=== PATIENT | female | born 1960 | race African-American/Black ===

== ENCOUNTER 2017-06-08 12:16 | Inpatient (IN) ==
[2017-06-08 14:33] LABS: Basophils % 0.2 % (0.0-0.8); Eosinophils # 0.1 10*3/uL (0.0-0.87); Eosinophils % 1.1 % (0.00-10.9); Hemoglobin 11.8 GM/DL (12.0-16.0); Immature Granulocytes % 0.3 %; Immature Granulocytes Absolute 0.03 #; Lymphocytes # 1.7 10*3/uL (1.4-4.0); Lymphocytes % 19.4 % (21.3-54.2); Mean Corpuscular HGB Conc 32.8 GM/DL (32-36); Mean Corpuscular Hemoglobin 30 PG (27-34); Mean Corpuscular Volume 92.3 FL (87-102); Monocytes # 1.1 10*3/uL (0.11-0.8); Monocytes % 12.5 % (1.7-12.7); Neutrophils # 5.8 10*3/uL (1.4-7.4); Neutrophils % 66.5 % (38.7-73.9); Platelet Count 152 T/CUMM (130-400); Red Cell Distribution Width 16.6 % (9.3-17.3); White Blood Count 8.7 T/CUMM (4-12)
[2017-06-08 15:10] LABS: Calcium 8.5 MG/DL (8.5-10.1); Osmolality,Calculated 300.1 MOS/KG (273-304); Potassium 4.5 MMOL/L (3.5-5.1)
[2017-06-08] MEDS ORDERED: VANCOMYCIN INJ 1,000 MG in SODIUM CHLORIDE 0.9% 250 ML IV STA (16:06)
[2017-06-08] MEDS ORDERED: VANCOMYCIN 1,000 MG VIAL ONE (17:11)
[2017-06-08] MEDS ORDERED: GLUCAGON 1 MG VIAL IM PRN (19:20)
[2017-06-08] MEDS ORDERED: DEXTROSE 50% 25 GM/50 ML VIAL IV PRN (19:20)
[2017-06-08] MEDS ORDERED: ACETAMINOPHEN 325 MG TABLET PO PRN (19:20)
[2017-06-08] MEDS ORDERED: ONDANSETRON 4 MG/2 ML VIAL IV PRN (19:20)
[2017-06-08] MEDS: INSULIN REGULAR 100 UNIT/ML SUBCUT SCH (20:52)
[2017-06-09] MEDS: ALBUTEROL/IPRATROPIUM 3 ML NEB RESP TX SCH ×6 (00:29→19:27)
[2017-06-09] MEDS ORDERED: BUPIVACAINE 0.25% 50 ML VIAL ONE (06:26)
[2017-06-09] MEDS: INSULIN REGULAR 100 UNIT/ML SUBCUT SCH ×5 (07:27→21:10)
[2017-06-09] MEDS: PANTOPRAZOLE 40 MG TABLET PO SCH ×3 (07:29→13:06)
[2017-06-09 08:03] LABS: Basophils % 0.5 % (0.0-0.8); Eosinophils # 0.1 10*3/uL (0.0-0.87); Hemoglobin 10.4 GM/DL (12.0-16.0); Immature Granulocytes % 0.4 %; Immature Granulocytes Absolute 0.03 #; Lymphocytes # 1.7 10*3/uL (1.4-4.0); Lymphocytes % 20.6 % (21.3-54.2); Mean Corpuscular HGB Conc 31.5 GM/DL (32-36); Mean Corpuscular Hemoglobin 30 PG (27-34); Mean Corpuscular Volume 93.8 FL (87-102); Mean Platelet Volume 11.3 FL (9.6-12.0); Monocytes # 1.3 10*3/uL (0.11-0.8); Monocytes % 15.3 % (1.7-12.7); Neutrophils # 5.1 10*3/uL (1.4-7.4); Neutrophils % 62.2 % (38.7-73.9); Platelet Count 166 T/CUMM (130-400); Red Blood Count 3.52 MC/CUMM (3.8-5.5); Red Cell Distribution Width 16.5 % (9.3-17.3); White Blood Count 8.2 T/CUMM (4-12)
[2017-06-09] MEDS ORDERED: fentaNYL 100 MCG/2 ML VIAL ONE (10:01)
[2017-06-09] MEDS ORDERED: PROPOFOL 200 MG/20 ML VIAL IV ONE (10:01)
[2017-06-09] MEDS ORDERED: SODIUM CHLORIDE 0.9% 250 ML IV ONE (10:01)
[2017-06-09] MEDS ORDERED: KETAMINE 500 MG/10 ML VIAL ONE (10:01)
[2017-06-09] MEDS ORDERED: LORATADINE 10 MG TABLET PO PRN (11:12)
[2017-06-09] MEDS ORDERED: VANCOMYCIN INJ 750 MG in SODIUM CHLORIDE 0.9% 250 ML IV PRN (11:21)
[2017-06-09] MEDS: PIPERACILLIN/TAZOBACTAM 3,375 MG in SODIUM CHLORIDE 0.9% 100 ML IV SCH (12:55)
[2017-06-09] MEDS: CALCIUM ACETATE 667 MG CAPSULE PO SCH ×2 (12:59→17:50)
[2017-06-09] MEDS: PHENYTOIN ER 100 MG CAPSULE PO SCH ×3 (13:00→21:09)
[2017-06-09] MEDS: LEVOTHYROXINE 50 MCG TABLET PO SCH (13:00)
[2017-06-09] MEDS ORDERED: VANCOMYCIN INJ 1,000 MG in SODIUM CHLORIDE 0.9% 250 ML IV ONE (16:00)
[2017-06-10] MEDS: ALBUTEROL/IPRATROPIUM 3 ML NEB RESP TX SCH ×5 (00:48→14:30)
[2017-06-10] MEDS: PIPERACILLIN/TAZOBACTAM 3,375 MG in SODIUM CHLORIDE 0.9% 100 ML IV SCH ×2 (02:00→15:15)
[2017-06-10 06:13] LABS: Basophils % 0.4 % (0.0-0.8); Eosinophils # 0.1 10*3/uL (0.0-0.87); Eosinophils % 1.2 % (0.00-10.9); Hematocrit 33.1 VOL% (35.7-47.0); Hemoglobin 10.7 GM/DL (12.0-16.0); Immature Granulocytes % 0.4 %; Immature Granulocytes Absolute 0.03 #; Lymphocytes % 27.3 % (21.3-54.2); Mean Corpuscular HGB Conc 32.3 GM/DL (32-36); Mean Corpuscular Hemoglobin 30 PG (27-34); Mean Corpuscular Volume 92.5 FL (87-102); Mean Platelet Volume 12.1 FL (9.6-12.0); Monocytes # 1.1 10*3/uL (0.11-0.8); Monocytes % 14.9 % (1.7-12.7); Neutrophils # 4.1 10*3/uL (1.4-7.4); Neutrophils % 55.8 % (38.7-73.9); Platelet Count 150 T/CUMM (130-400); Red Blood Count 3.58 MC/CUMM (3.8-5.5); Red Cell Distribution Width 16.3 % (9.3-17.3); White Blood Count 7.3 T/CUMM (4-12)
[2017-06-10] MEDS: LEVOTHYROXINE 50 MCG TABLET PO SCH (06:16)
[2017-06-10 06:47] LABS: Calcium 8.6 MG/DL (8.5-10.1); Magnesium 2.5 MG/DL (1.8-2.4)
[2017-06-10] MEDS: CALCIUM ACETATE 667 MG CAPSULE PO SCH ×3 (09:29→17:42)
[2017-06-10] MEDS: PANTOPRAZOLE 40 MG TABLET PO SCH (09:30)
[2017-06-10] MEDS: PHENYTOIN ER 100 MG CAPSULE PO SCH ×2 (09:30→15:16)
[2017-06-10] MEDS: INSULIN REGULAR 100 UNIT/ML SUBCUT SCH ×3 (09:31→17:41)
[2017-06-10 11:21] VITALS: BP 165/74
== END 2017-06-10 17:30 | disposition home health service (06) | DRG 600 ==
LOC: N.ED 12:16 → N.EDINP 16:10 → N.3E 18:26
PROVIDERS: ADMIT Surgery; ATTEND Surgery

== ENCOUNTER 2017-07-31 13:52 | Inpatient (IN) ==
[2017-07-31 15:35] LABS: Basophils % 0.2 % (0.0-0.8); Eosinophils # 0.1 10*3/uL (0.0-0.87); Eosinophils % 1.6 % (0.00-10.9); Hematocrit 35.2 VOL% (35.7-47.0); Hemoglobin 11.1 GM/DL (12.0-16.0); Immature Granulocytes % 0.2 %; Immature Granulocytes Absolute 0.01 #; Lymphocytes # 1.9 10*3/uL (1.4-4.0); Lymphocytes % 32.5 % (21.3-54.2); Mean Corpuscular HGB Conc 31.5 GM/DL (32-36); Mean Corpuscular Hemoglobin 30 PG (27-34); Mean Corpuscular Volume 95.9 FL (87-102); Mean Platelet Volume 10.3 FL (9.6-12.0); Monocytes # 0.5 10*3/uL (0.11-0.8); Monocytes % 9.1 % (1.7-12.7); Neutrophils # 3.2 10*3/uL (1.4-7.4); Neutrophils % 56.4 % (38.7-73.9); Platelet Count 136 T/CUMM (130-400); Red Blood Count 3.67 MC/CUMM (3.8-5.5); Red Cell Distribution Width 17.2 % (9.3-17.3); White Blood Count 5.7 T/CUMM (4-12)
[2017-07-31] MEDS ORDERED: ceFAZolin 1,000 MG in SYRINGE 1 EACH IV ONE (15:37)
[2017-07-31 15:43] LABS: Partial Thromboplastin Time 25.8 SECS (0-40)
[2017-07-31 15:50] LABS: Calcium 8.6 MG/DL (8.5-10.1); Osmolality,Calculated 306.5 MOS/KG (273-304); Potassium 4.6 MMOL/L (3.5-5.1)
[2017-07-31] MEDS ORDERED: ONDANSETRON 4 MG/2 ML VIAL IV PRN (16:42)
[2017-07-31] MEDS ORDERED: DOCUSATE SODIUM 100 MG CAPSULE PO PRN (16:42)
[2017-07-31] MEDS ORDERED: GLUCAGON 1 MG VIAL IM PRN (17:02)
[2017-07-31] MEDS ORDERED: DEXTROSE 50% 25 GM/50 ML VIAL IV PRN (17:02)
[2017-07-31] MEDS: CALCIUM ACETATE 667 MG CAPSULE PO SCH (18:11)
[2017-07-31] MEDS: PHENYTOIN ER 100 MG CAPSULE PO SCH (20:14)
[2017-07-31] MEDS: INSULIN REGULAR 100 UNIT/ML SUBCUT SCH (21:24)
[2017-08-01] MEDS: LEVOTHYROXINE 50 MCG TABLET PO SCH (05:51)
[2017-08-01] MEDS ORDERED: ceFAZolin 1,000 MG in SYRINGE 1 EACH IV ONE ×2 (06:00→15:04)
[2017-08-01 07:11] LABS: Basophils % 0.5 % (0.0-0.8); Eosinophils # 0.1 10*3/uL (0.0-0.87); Eosinophils % 2.2 % (0.00-10.9); Hematocrit 36.8 VOL% (35.7-47.0); Hemoglobin 11.3 GM/DL (12.0-16.0); Immature Granulocytes % 0.2 %; Immature Granulocytes Absolute 0.01 #; Lymphocytes # 1.8 10*3/uL (1.4-4.0); Lymphocytes % 32.7 % (21.3-54.2); Mean Corpuscular HGB Conc 30.7 GM/DL (32-36); Mean Corpuscular Hemoglobin 30 PG (27-34); Mean Corpuscular Volume 96.3 FL (87-102); Mean Platelet Volume 11.4 FL (9.6-12.0); Monocytes # 0.5 10*3/uL (0.11-0.8); Monocytes % 9.6 % (1.7-12.7); Neutrophils % 54.8 % (38.7-73.9); Platelet Count 164 T/CUMM (130-400); Red Blood Count 3.82 MC/CUMM (3.8-5.5); Red Cell Distribution Width 17.1 % (9.3-17.3); White Blood Count 5.5 T/CUMM (4-12)
[2017-08-01 07:41] LABS: Calcium 8.5 MG/DL (8.5-10.1); Osmolality,Calculated 309.4 MOS/KG (273-304)
[2017-08-01] MEDS: INSULIN REGULAR 100 UNIT/ML SUBCUT SCH ×4 (08:39→21:05)
[2017-08-01] MEDS ORDERED: PANTOPRAZOLE 40 MG TABLET PO SCH (09:00)
[2017-08-01] MEDS: CALCIUM ACETATE 667 MG CAPSULE PO SCH ×3 (09:32→17:36)
[2017-08-01] MEDS: PHENYTOIN ER 100 MG CAPSULE PO SCH ×4 (09:33→21:01)
[2017-08-01] MEDS: MULTIVITAMIN (BEROCCA) TABLET PO SCH (09:33)
[2017-08-01] MEDS: PANTOPRAZOLE 40 MG TABLET PO SCH (09:33)
[2017-08-01] MEDS: SODIUM CHLORIDE 0.9% 250 ML IV SCH (10:24)
[2017-08-01] MEDS ORDERED: MIDAZOLAM 2 MG/2 ML VIAL ONE (12:12)
[2017-08-01] MEDS ORDERED: fentaNYL 100 MCG/2 ML VIAL ONE (12:12)
[2017-08-01] MEDS ORDERED: PROPOFOL 200 MG/20 ML VIAL IV ONE (12:13)
[2017-08-01] MEDS ORDERED: HEPARIN 10,000 UNIT/10 ML VIAL IV SCH (14:00)
[2017-08-01] MEDS ORDERED: ALTEPLASE 2 MG VIAL IV ONE (14:00)
[2017-08-01] MEDS ORDERED: EPOETIN ALFA 10,000 UNIT/1 ML VIAL IV PRN (14:45)
[2017-08-01] MEDS ORDERED: BISACODYL 10 MG SUPP RECTAL ONE (20:40)
[2017-08-02] MEDS: LEVOTHYROXINE 50 MCG TABLET PO SCH (06:26)
[2017-08-02 06:59] LABS: Calcium 8.1 MG/DL (8.5-10.1)
[2017-08-02 07:00] LABS: Osmolality,Calculated 298.8 MOS/KG (273-304); Potassium 4.9 MMOL/L (3.5-5.1)
[2017-08-02] MEDS: SODIUM CHLORIDE 0.9% 250 ML IV SCH (07:13)
[2017-08-02] MEDS: INSULIN REGULAR 100 UNIT/ML SUBCUT SCH ×4 (07:41→21:10)
[2017-08-02] MEDS ORDERED: HEPARIN 5,000 UNIT/1 ML VIAL ONE (08:23)
[2017-08-02] MEDS ORDERED: BUPIVACAINE MPF 0.25% /EPI 30 ML VIAL ONE (08:23)
[2017-08-02] MEDS ORDERED: LIDOCAINE 1%/EPI INJ 20 ML VIAL ONE (08:24)
[2017-08-02] MEDS ORDERED: ALTEPLASE 2 MG VIAL IV ONE (08:30)
[2017-08-02] MEDS ORDERED: ceFAZolin 1,000 MG VIAL ONE (09:59)
[2017-08-02] MEDS: CALCIUM ACETATE 667 MG CAPSULE PO SCH ×3 (10:23→16:34)
[2017-08-02] MEDS: PANTOPRAZOLE 40 MG TABLET PO SCH (10:24)
[2017-08-02] MEDS: MULTIVITAMIN (BEROCCA) TABLET PO SCH (10:24)
[2017-08-02] MEDS: PHENYTOIN ER 100 MG CAPSULE PO SCH ×3 (10:24→21:09)
[2017-08-02] MEDS ORDERED: PROPOFOL 200 MG/20 ML VIAL IV ONE (10:42)
[2017-08-02] MEDS ORDERED: fentaNYL 100 MCG/2 ML VIAL ONE (10:43)
[2017-08-02] MEDS ORDERED: MIDAZOLAM 2 MG/2 ML VIAL ONE (10:43)
[2017-08-03] MEDS: LEVOTHYROXINE 50 MCG TABLET PO SCH (05:51)
[2017-08-03] MEDS: INSULIN REGULAR 100 UNIT/ML SUBCUT SCH ×2 (08:45→12:32)
[2017-08-03] MEDS: CALCIUM ACETATE 667 MG CAPSULE PO SCH ×2 (11:37→12:47)
[2017-08-03] MEDS: PHENYTOIN ER 100 MG CAPSULE PO SCH (12:47)
[2017-08-03] MEDS: MULTIVITAMIN (BEROCCA) TABLET PO SCH (12:47)
[2017-08-03] MEDS: PANTOPRAZOLE 40 MG TABLET PO SCH (12:47)
[2017-08-03 12:55] VITALS: BP 141/73
== END 2017-08-03 14:20 | disposition home or self-care (01) | DRG 314 ==
LOC: N.ED 13:52 → N.EDINP 15:30 → SUATTDRO 15:30 → N.EDINP 17:19 → N.2E 17:24
PROVIDERS: ADMIT Internal Medicine; ATTEND Internal Medicine Infectious Disease

== ENCOUNTER 2018-02-22 11:15 | Inpatient (IN) ==
[2018-02-22] MEDS ORDERED: PANTOPRAZOLE 40 MG VIAL IV STA (12:02)
[2018-02-22] MEDS ORDERED: ONDANSETRON 4 MG/2 ML VIAL IV STA (12:02)
[2018-02-22] MEDS ORDERED: DICYCLOMINE 20 MG/2 ML AMP IM ONE (12:07)
[2018-02-22 12:41] LABS: Basophils % 0.1 % (0.0-0.8); Eosinophils # 0.1 10*3/uL (0.0-0.87); Eosinophils % 0.7 % (0.00-10.9); Hematocrit 34.1 VOL% (35.7-47.0); Hemoglobin 10.4 GM/DL (12.0-16.0); Immature Granulocytes % 0.6 %; Immature Granulocytes Absolute 0.09 #; Lymphocytes # 1.7 10*3/uL (1.4-4.0); Lymphocytes % 11.9 % (21.3-54.2); Mean Corpuscular HGB Conc 30.5 GM/DL (32-36); Mean Corpuscular Hemoglobin 29 PG (27-34); Mean Corpuscular Volume 93.7 FL (87-102); Mean Platelet Volume 11.9 FL (9.6-12.0); Monocytes # 1.3 10*3/uL (0.11-0.8); Monocytes % 9.2 % (1.7-12.7); Neutrophils # 10.8 10*3/uL (1.4-7.4); Neutrophils % 77.5 % (38.7-73.9); Platelet Count 151 T/CUMM (130-400); Red Blood Count 3.64 MC/CUMM (3.8-5.5)
[2018-02-22 13:06] LABS: Lactic Acid 1.4 MMOL/L (0.4-2.0)
[2018-02-22 13:09] LABS: Alanine Aminotransferase 24 U/L (13-56); Albumin 2.7 G/DL (3.4-5.0); Alkaline Phosphatase 99 U/L (45-117); Amylase 31 U/L (25-115); Aspartate Amino Transferase 18 U/L (0-37); Blood Urea Nitrogen 40 MG/DL (7-18); Calcium 9.6 MG/DL (8.5-10.1); Glucose 175 MG/DL (74-106); Osmolality,Calculated 279.4 MOS/KG (273-304); Potassium 3.2 MMOL/L (3.5-5.1); Sodium 133 MMOL/L (136-145)
[2018-02-22 13:15] LABS: Troponin I 0.186 NG/ML (0.00-0.045)
[2018-02-22] MEDS ORDERED: PIPERACILLIN/TAZOBACTAM 4,500 MG in SODIUM CHLORIDE 0.9% 100 ML IV STA (13:15)
[2018-02-22] MEDS ORDERED: ONDANSETRON 4 MG/2 ML VIAL IV PRN (13:39)
[2018-02-22] MEDS ORDERED: MORPHINE 4 MG/1 ML VIAL IV PRN (13:39)
[2018-02-22] MEDS ORDERED: GLUCAGON 1 MG VIAL IM PRN (15:31)
[2018-02-22] MEDS ORDERED: DEXTROSE 50% 25 GM/50 ML VIAL IV PRN (15:31)
[2018-02-22] MEDS ORDERED: INFLUENZA VIRUS VACCINE 0.5 ML SYRINGE IM ONE (15:40)
[2018-02-22 16:05] LABS: PT Patient Result 10.7 SECS; Partial Thromboplastin Time 27.2 SECS (0-40)
[2018-02-22] MEDS: HEPARIN 5,000 UNIT/1 ML VIAL SUBCUT SCH (16:15)
[2018-02-22] MEDS: INSULIN LISPRO 100 UNIT/ML SUBCUT SCH ×2 (16:40→21:18)
[2018-02-22] MEDS: CALCIUM ACETATE 667 MG CAPSULE PO SCH (16:40)
[2018-02-22] MEDS ORDERED: HEPARIN 10,000 UNIT/10 ML VIAL IV PRN (17:50)
[2018-02-23] MEDS: HEPARIN 5,000 UNIT/1 ML VIAL SUBCUT SCH ×4 (01:18→23:38)
[2018-02-23 02:14] LABS: Basophils % 0.3 % (0.0-0.8); Eosinophils # 0.1 10*3/uL (0.0-0.87); Eosinophils % 0.6 % (0.00-10.9); Hemoglobin 9.5 GM/DL (12.0-16.0); Immature Granulocytes % 0.7 %; Immature Granulocytes Absolute 0.08 #; Lymphocytes # 1.5 10*3/uL (1.4-4.0); Lymphocytes % 12.8 % (21.3-54.2); Mean Corpuscular HGB Conc 30.6 GM/DL (32-36); Mean Corpuscular Hemoglobin 29 PG (27-34); Mean Corpuscular Volume 93.4 FL (87-102); Mean Platelet Volume 11.7 FL (9.6-12.0); Monocytes # 1.4 10*3/uL (0.11-0.8); Monocytes % 12.1 % (1.7-12.7); Neutrophils # 8.4 10*3/uL (1.4-7.4); Neutrophils % 73.5 % (38.7-73.9); Platelet Count 145 T/CUMM (130-400); Red Blood Count 3.32 MC/CUMM (3.8-5.5); White Blood Count 11.5 T/CUMM (4-12)
[2018-02-23] MEDS: PIPERACILLIN/TAZOBACTAM 2,250 MG in SODIUM CHLORIDE 0.9% 100 ML IV SCH ×2 (02:19→13:55)
[2018-02-23 02:33] LABS: Albumin 2.4 G/DL (3.4-5.0); Bilirubin,Direct 0.27 MG/DL (0.0-0.20); Bilirubin,Indirect 0.4 MG/DL (0.0-1.0); Bilirubin,Total 0.7 MG/DL (0.2-1.0); Total Protein 8.1 G/DL (6.4-8.3)
[2018-02-23 02:55] LABS: Potassium 3.2 MMOL/L (3.5-5.1)
[2018-02-23 02:57] LABS: Calcium 8.6 MG/DL (8.5-10.1)
[2018-02-23] MEDS: CALCIUM ACETATE 667 MG CAPSULE PO SCH ×3 (07:51→16:32)
[2018-02-23] MEDS: INSULIN LISPRO 100 UNIT/ML SUBCUT SCH ×4 (07:51→21:25)
[2018-02-23] MEDS: PANTOPRAZOLE 40 MG VIAL IV SCH (08:36)
[2018-02-23] MEDS ORDERED: MEPERIDINE 50 MG/1 ML VIAL IV ONE (10:06)
[2018-02-23] MEDS ORDERED: fentaNYL 100 MCG/2 ML VIAL IV ONE (10:06)
[2018-02-23] MEDS ORDERED: ONDANSETRON 4 MG/2 ML VIAL ONE (10:10)
[2018-02-23] MEDS ORDERED: MIDAZOLAM 2 MG/2 ML VIAL ONE (10:10)
[2018-02-23] MEDS ORDERED: MIDAZOLAM 2 MG/2 ML VIAL IV ONE (11:28)
[2018-02-23] MEDS: LORATADINE 10 MG TABLET PO SCH (13:52)
[2018-02-24] MEDS: PIPERACILLIN/TAZOBACTAM 2,250 MG in SODIUM CHLORIDE 0.9% 100 ML IV SCH (01:12)
[2018-02-24] MEDS: INSULIN LISPRO 100 UNIT/ML SUBCUT SCH ×4 (09:59→20:45)
[2018-02-24] MEDS: CALCIUM ACETATE 667 MG CAPSULE PO SCH ×3 (10:08→17:31)
[2018-02-24] MEDS: LORATADINE 10 MG TABLET PO SCH (10:10)
[2018-02-24] MEDS: PHENYTOIN ER 100 MG CAPSULE PO SCH ×2 (10:10→20:40)
[2018-02-24] MEDS: PANTOPRAZOLE 40 MG VIAL IV SCH (10:13)
[2018-02-24] MEDS: HEPARIN 5,000 UNIT/1 ML VIAL SUBCUT SCH ×3 (10:15→22:43)
[2018-02-24] MEDS: PIPERACILLIN/TAZOBACTAM 3,375 MG in SODIUM CHLORIDE 0.9% 100 ML IV SCH (17:35)
[2018-02-25] MEDS: PIPERACILLIN/TAZOBACTAM 3,375 MG in SODIUM CHLORIDE 0.9% 100 ML IV SCH (04:46)
[2018-02-25 04:54] LABS: Basophils % 0.4 % (0.0-0.8); Eosinophils # 0.2 10*3/uL (0.0-0.87); Eosinophils % 2.5 % (0.00-10.9); Hemoglobin 9.5 GM/DL (12.0-16.0); Immature Granulocytes % 0.6 %; Immature Granulocytes Absolute 0.05 #; Lymphocytes # 1.8 10*3/uL (1.4-4.0); Lymphocytes % 21.7 % (21.3-54.2); Mean Corpuscular HGB Conc 29.7 GM/DL (32-36); Mean Corpuscular Hemoglobin 28 PG (27-34); Mean Corpuscular Volume 94.4 FL (87-102); Mean Platelet Volume 11.4 FL (9.6-12.0); Monocytes # 1.1 10*3/uL (0.11-0.8); Monocytes % 13.6 % (1.7-12.7); Neutrophils % 61.2 % (38.7-73.9); Platelet Count 149 T/CUMM (130-400); Red Blood Count 3.39 MC/CUMM (3.8-5.5); Red Cell Distribution Width 17.2 % (9.3-17.3); White Blood Count 8.1 T/CUMM (4-12)
[2018-02-25 05:30] LABS: Calcium 9.3 MG/DL (8.5-10.1); Potassium 3.4 MMOL/L (3.5-5.1)
[2018-02-25] MEDS ORDERED: LEVOTHYROXINE 50 MCG TABLET PO SCH (07:00)
[2018-02-25] MEDS: CALCIUM ACETATE 667 MG CAPSULE PO SCH (08:57)
[2018-02-25] MEDS: PHENYTOIN ER 100 MG CAPSULE PO SCH (08:58)
[2018-02-25] MEDS: LORATADINE 10 MG TABLET PO SCH (08:58)
[2018-02-25] MEDS: PANTOPRAZOLE 40 MG VIAL IV SCH (08:58)
[2018-02-25] MEDS: INSULIN LISPRO 100 UNIT/ML SUBCUT SCH (09:00)
[2018-02-25] MEDS: HEPARIN 5,000 UNIT/1 ML VIAL SUBCUT SCH (09:01)
[2018-02-25 16:07] VITALS: BP 120/69
== END 2018-02-25 16:42 | disposition home health service (06) | DRG 444 ==
LOC: N.ED 11:15 → SUATTDRO 13:38 → N.EDINP 13:38 → N.3E 15:03
PROVIDERS: ADMIT Emergency Medicine; ATTEND Hospitalist

== ENCOUNTER 2019-12-27 14:22 | Inpatient (IN) ==
[2019-12-27] MEDS ORDERED: PIPERACILLIN/TAZOBACTAM 3,375 MG in SODIUM CHLORIDE 0.9% 100 ML IV STA (14:40)
[2019-12-27] MEDS ORDERED: VANCOMYCIN INJ 1,000 MG in SODIUM CHLORIDE 0.9% 250 ML IV STA (14:40)
[2019-12-27 15:18] LABS: Hematocrit 27.5 VOL% (35.7-47.0); Hemoglobin 8.8 GM/DL (12.0-16.0); Immature Granulocytes % 0.3 %; Immature Granulocytes Absolute 0.01 #; Lymphocytes # 1.4 10*3/uL (1.4-4.0); Lymphocytes % 44.8 % (21.3-54.2); Mean Corpuscular Volume 97.5 FL (87-102); Monocytes % 11.4 % (1.7-12.7); Neutrophils % 43.5 % (38.7-73.9); Platelet Count 68 T/CUMM (130-400); Red Blood Count 2.82 MC/CUMM (3.8-5.5); Red Cell Distribution Width 15.1 % (9.3-17.3); White Blood Count 3.2 T/CUMM (4-12)
[2019-12-27] MEDS ORDERED: hydrALAZINE 20 MG/1 ML VIAL IV STA (15:19)
[2019-12-27 15:32] LABS: INR 1.3; PT Patient Result 13.9 SECS (9.8-11.9)
[2019-12-27 15:35] LABS: Alanine Aminotransferase 17 U/L (13-56); Albumin 2.3 G/DL (3.4-5.0); Alkaline Phosphatase 95 U/L (45-117); Aspartate Amino Transferase 26 U/L (0-37); Blood Urea Nitrogen 50 MG/DL (7-18); Calcium 7.1 MG/DL (8.5-10.1); Estimated Glom Filtration Rate 5 ML/MIN; Glucose 76 MG/DL (74-106); Osmolality,Calculated 288.5 MOS/KG (273-304); Troponin I 0.171 NG/ML (0.00-0.045)
[2019-12-27] MEDS ORDERED: GLUCAGON 1 MG VIAL IM PRN (15:49)
[2019-12-27] MEDS ORDERED: hydrALAZINE 20 MG/1 ML VIAL IV PRN (15:49)
[2019-12-27] MEDS ORDERED: DEXTROSE 50% 25 GM/50 ML VIAL IV PRN (15:49)
[2019-12-27 16:21] LABS: Ferritin 1076.9 ng/ml (8-252)
[2019-12-27] MEDS: INSULIN LISPRO 100 UNIT/ML SUBCUT SCH ×2 (16:30→20:28)
[2019-12-27] MEDS: HEPARIN 5,000 UNIT/1 ML VIAL SUBCUT SCH (17:26)
[2019-12-27] MEDS: DEXAMETHASONE 10 MG/1 ML VIAL IV SCH (17:26)
[2019-12-27] MEDS: POTASSIUM CHLORIDE 20 MEQ TABLET PO PRN ×4 (17:27→23:29)
[2019-12-27] MEDS ORDERED: VANCOMYCIN INJ 1,000 MG in SODIUM CHLORIDE 0.9% 250 ML IV ONE (20:00)
[2019-12-27] MEDS: PIPERACILLIN/TAZOBACTAM 2,250 MG in SODIUM CHLORIDE 0.9% 100 ML IV SCH (20:52)
[2019-12-27] MEDS: ONDANSETRON 4 MG/2 ML VIAL IV PRN (21:34)
[2019-12-28] MEDS: HEPARIN 5,000 UNIT/1 ML VIAL SUBCUT SCH ×3 (02:34→16:35)
[2019-12-28 05:11] LABS: Hematocrit 29.6 VOL% (35.7-47.0); Hemoglobin 9.4 GM/DL (12.0-16.0); Lymphocytes # 1.6 10*3/uL (1.4-4.0); Lymphocytes % 55.9 % (21.3-54.2); Mean Corpuscular HGB Conc 31.8 GM/DL (32-36); Mean Platelet Volume 11.8 FL (9.6-12.0); Monocytes % 9.1 % (1.7-12.7); Red Blood Count 2.99 MC/CUMM (3.8-5.5); Red Cell Distribution Width 15.2 % (9.3-17.3); White Blood Count 2.9 T/CUMM (4-12)
[2019-12-28 05:12] LABS: Platelet Count 75 T/CUMM (130-400)
[2019-12-28 05:44] LABS: Ferritin 1432.8 ng/ml (8-252)
[2019-12-28 05:51] LABS: Albumin 2.6 G/DL (3.4-5.0); Bilirubin,Total 0.7 MG/DL (0.2-1.0); Osmolality,Calculated 290.8 MOS/KG (273-304); Risk Ratio 4.87; Thyroid Stimulating Hormone 1.52 uIU/ml (0.358-3.74); Total Protein 7.9 G/DL (6.4-8.3)
[2019-12-28 06:13] LABS: Lymphocytes 53 % (20-55); Segmented Neutrophils 40 % (50-85); Total Cells Counted 100
[2019-12-28 06:14] LABS: Hypochromasia 1+; Platelet Estimate Decreased
[2019-12-28] MEDS ORDERED: LORazepam 2 MG/1 ML VIAL IV PRN (07:35)
[2019-12-28] MEDS: DEXAMETHASONE 10 MG/1 ML VIAL IV SCH (08:17)
[2019-12-28] MEDS: ZINC GLUCONATE 50 MG TABLET PO SCH (08:18)
[2019-12-28] MEDS: PIPERACILLIN/TAZOBACTAM 2,250 MG in SODIUM CHLORIDE 0.9% 100 ML IV SCH (08:18)
[2019-12-28] MEDS: INSULIN LISPRO 100 UNIT/ML SUBCUT SCH ×4 (08:33→22:12)
[2019-12-28] MEDS ORDERED: PANTOPRAZOLE 40 MG TABLET PO SCH (09:00)
[2019-12-28 09:56] LABS: ABG Base Excess -1.4 MMOL/L (-2.5-2.5); ABG HCO3 23.2 MMOL/L (20-26); ABG Oxygen Saturation 92.9 % (95-100); ABG PO2 69.2 MM HG (80-95); ABG TCO2 22.8 MMOL/L (23-27)
[2019-12-28] MEDS: ACETAMINOPHEN 325 MG TABLET PO PRN (17:48)
[2019-12-28] MEDS: PIPERACILLIN/TAZOBACTAM 3,375 MG in SODIUM CHLORIDE 0.9% 100 ML IV SCH (20:59)
[2019-12-29] MEDS: ACETAMINOPHEN 325 MG TABLET PO PRN ×4 (01:34→21:44)
[2019-12-29] MEDS: HEPARIN 5,000 UNIT/1 ML VIAL SUBCUT SCH ×3 (01:35→17:38)
[2019-12-29 05:45] LABS: Hematocrit 30.7 VOL% (35.7-47.0); Hemoglobin 9.7 GM/DL (12.0-16.0); Immature Granulocytes % 0.3 %; Immature Granulocytes Absolute 0.01 #; Lymphocytes # 1.3 10*3/uL (1.4-4.0); Lymphocytes % 38.2 % (21.3-54.2); Mean Corpuscular HGB Conc 31.6 GM/DL (32-36); Mean Corpuscular Volume 98.1 FL (87-102); Mean Platelet Volume 12.6 FL (9.6-12.0); Monocytes % 6.6 % (1.7-12.7); Neutrophils % 54.9 % (38.7-73.9); Platelet Count 83 T/CUMM (130-400); Red Blood Count 3.13 MC/CUMM (3.8-5.5); Red Cell Distribution Width 15.2 % (9.3-17.3); White Blood Count 3.4 T/CUMM (4-12)
[2019-12-29 06:05] LABS: Ferritin 1807.2 ng/ml (8-252)
[2019-12-29 06:07] LABS: Albumin 2.4 G/DL (3.4-5.0); Bilirubin,Total 0.7 MG/DL (0.2-1.0); Calcium 8.2 MG/DL (8.5-10.1); Osmolality,Calculated 284.7 MOS/KG (273-304); Total Protein 7.6 G/DL (6.4-8.3)
[2019-12-29 06:25] LABS: Band Neutrophils 4 % (0-10); Hypochromasia 1+; Lymphocytes 39 % (20-55); Segmented Neutrophils 55 % (50-85); Total Cells Counted 100
[2019-12-29 06:28] LABS: Macrocytosis Slight; Platelet Estimate Decreased
[2019-12-29] MEDS: INSULIN LISPRO 100 UNIT/ML SUBCUT SCH ×4 (07:31→21:44)
[2019-12-29] MEDS ORDERED: ACETAMINOPHEN 500 MG TABLET PO PRN (08:26)
[2019-12-29] MEDS: DEXAMETHASONE 10 MG/1 ML VIAL IV SCH (08:38)
[2019-12-29] MEDS: PIPERACILLIN/TAZOBACTAM 3,375 MG in SODIUM CHLORIDE 0.9% 100 ML IV SCH ×2 (08:39→21:25)
[2019-12-29] MEDS: ZINC GLUCONATE 50 MG TABLET PO SCH (08:40)
[2019-12-29] MEDS ORDERED: LORATADINE 10 MG TABLET PO PRN (08:56)
[2019-12-29] MEDS: PHENYTOIN ER 100 MG CAPSULE PO SCH ×3 (09:44→21:44)
[2019-12-29] MEDS: ONDANSETRON 4 MG/2 ML VIAL IV PRN (11:45)
[2019-12-29] MEDS: CALCIUM ACETATE 667 MG CAPSULE PO SCH ×2 (12:14→17:38)
[2019-12-29] MEDS: amLODIPine 5 MG TABLET PO SCH (12:15)
[2019-12-29] MEDS ORDERED: VANCOMYCIN INJ 750 MG in SODIUM CHLORIDE 0.9% 250 ML IV PRN (17:00)
[2019-12-29] MEDS: ROSUVASTATIN 20 MG TABLET PO SCH (21:44)
[2019-12-30] MEDS: HEPARIN 5,000 UNIT/1 ML VIAL SUBCUT SCH ×3 (00:39→17:19)
[2019-12-30] MEDS: ACETAMINOPHEN 325 MG TABLET PO PRN ×3 (05:08→21:12)
[2019-12-30 06:11] LABS: Hematocrit 31.4 VOL% (35.7-47.0); Hemoglobin 9.8 GM/DL (12.0-16.0); Immature Granulocytes % 0.5 %; Immature Granulocytes Absolute 0.02 #; Lymphocytes # 1.3 10*3/uL (1.4-4.0); Lymphocytes % 34.2 % (21.3-54.2); Mean Corpuscular HGB Conc 31.2 GM/DL (32-36); Mean Corpuscular Volume 99.4 FL (87-102); Mean Platelet Volume 12.4 FL (9.6-12.0); Neutrophils % 58.3 % (38.7-73.9); Red Blood Count 3.16 MC/CUMM (3.8-5.5); Red Cell Distribution Width 15.5 % (9.3-17.3); White Blood Count 3.9 T/CUMM (4-12)
[2019-12-30 06:13] LABS: Platelet Count 72 T/CUMM (130-400)
[2019-12-30 06:34] LABS: Albumin 2.5 G/DL (3.4-5.0); Bilirubin,Total 0.9 MG/DL (0.2-1.0); Calcium 8.2 MG/DL (8.5-10.1); Osmolality,Calculated 290.5 MOS/KG (273-304); Total Protein 7.9 G/DL (6.4-8.3)
[2019-12-30 06:54] LABS: Hypochromasia 1+; Microcytosis 1+; Platelet Estimate Decreased
[2019-12-30 07:14] LABS: Ferritin 1932.2 ng/ml (8-252)
[2019-12-30] MEDS: INSULIN LISPRO 100 UNIT/ML SUBCUT SCH ×4 (08:24→21:04)
[2019-12-30] MEDS: DEXAMETHASONE 10 MG/1 ML VIAL IV SCH (09:07)
[2019-12-30] MEDS: amLODIPine 5 MG TABLET PO SCH (09:10)
[2019-12-30] MEDS: ZINC GLUCONATE 50 MG TABLET PO SCH (09:10)
[2019-12-30] MEDS: PHENYTOIN ER 100 MG CAPSULE PO SCH ×3 (09:10→21:12)
[2019-12-30] MEDS: CALCIUM ACETATE 667 MG CAPSULE PO SCH ×3 (09:10→17:19)
[2019-12-30] MEDS: PIPERACILLIN/TAZOBACTAM 3,375 MG in SODIUM CHLORIDE 0.9% 100 ML IV SCH ×2 (09:11→21:05)
[2019-12-30 10:03] LABS: ABG Base Excess -0.6 MMOL/L (-2.5-2.5); ABG HCO3 23.6 MMOL/L (20-26); ABG Oxygen Saturation 83.1 % (95-100); ABG PCO2 43.8 MM HG (35-48); ABG PH 7.362 (7.35-7.45); ABG PO2 51.1 MM HG (80-95); ABG TCO2 22.7 MMOL/L (23-27)
[2019-12-30] MEDS: ROSUVASTATIN 20 MG TABLET PO SCH (21:12)
[2019-12-31] MEDS: HEPARIN 5,000 UNIT/1 ML VIAL SUBCUT SCH ×2 (00:59→09:15)
[2019-12-31] MEDS: ACETAMINOPHEN 325 MG TABLET PO PRN ×2 (03:24→09:15)
[2019-12-31] MEDS: INSULIN LISPRO 100 UNIT/ML SUBCUT SCH ×2 (07:41→11:25)
[2019-12-31 08:04] VITALS: BP 194/60
[2019-12-31] MEDS ORDERED: ACETAMINOPHEN 500 MG TABLET PO ONE (09:00)
[2019-12-31] MEDS: DEXAMETHASONE 10 MG/1 ML VIAL IV SCH (09:12)
[2019-12-31] MEDS: CALCIUM ACETATE 667 MG CAPSULE PO SCH ×2 (09:15→11:45)
[2019-12-31] MEDS: PIPERACILLIN/TAZOBACTAM 3,375 MG in SODIUM CHLORIDE 0.9% 100 ML IV SCH (09:15)
[2019-12-31] MEDS: ZINC GLUCONATE 50 MG TABLET PO SCH (09:15)
[2019-12-31] MEDS: amLODIPine 5 MG TABLET PO SCH (09:15)
[2019-12-31] MEDS: PHENYTOIN ER 100 MG CAPSULE PO SCH (09:15)
== END 2019-12-31 11:58 | disposition home health service (06) | DRG 177 ==
LOC: EDUNIT# → EDBD → N.ED 14:22 → SUATTDRO 15:48 → N.EDINP 15:48 → N.2E 16:45
PROVIDERS: ADMIT Internal Medicine; ATTEND Hospitalist